=== PATIENT | female | born 1940 | race Caucasian/White ===

== ENCOUNTER 2017-10-29 11:50 | Emergency (ER) | payer OTHER, MEDICARE ==
[~2017-10-29] VITALS: Ht 160 cm; Wt 69.7 kg
[~2017-10-29 11:50] MED LIST: CYAN100063 INJ; LEVO50TA5 PO; NA P1TAB PO
[2017-10-29] MEDS ORDERED: ALBUTEROL/IPRATROPIUM 2.5MG/0.5MG, 3 ML NPPB ONE (13:00)
[2017-10-29] MEDS ORDERED: ALBUTEROL/IPRATROPIUM 2.5MG/0.5MG, 3 ML ONE (13:32)
[2017-10-29 14:01] VITALS: BP 133/85
== END 2017-10-29 15:24 | disposition home or self-care (01) ==
LOC: ED 13:30
DX: J20.9 Acute bronchitis, unspecified (principal); E03.9 Hypothyroidism, unspecified
CPT/HCPCS: 71046; 93005; 94640; 99284; J7620